=== PATIENT | male | born 1950 | race Caucasian/White ===

== ENCOUNTER 2017-07-23 12:39 | Observation (INO) | payer BC, OTHER ==
--- NOTE | 2017-07-23 13:44 | CPEKG ---
Heart Rate: 64 RR Interval: 938 P-R Interval: 192 QRSD Interval: 84 QT Interval: 424 QTC Interval: 438 P Doyline: 30 QRS Doyline: 36 T Wave Doyline: -20 EKG Severity - ABNORMAL ECG - EKG Impression: SINUS RHYTHM EKG Impression: BORDERLINE T ABNORMALITIES, INFERIOR LEADS Electronically Signed By: Shahrzad Newsome 23-Jul-2017 20:48:52
[2017-07-23 13:59] LABS: % IMMATURE GRANULYOCYTES 0.3 % (0.0-1.1); ABSOLUTE IMMATURE GRANULOCYTES 0.02 10^3/uL (0.00-0.10); ADD DIFF? NO; ADD MORPH? NO; ADD SCAN? NO; ATYPICAL LYMPHOCYTE FLAG 10 (0-99); FRAGMENT RBC FLAG 0 (0-99); HEMOGLOBIN 16.7 g/dL (13.7-17.5); LEFT SHIFT FLG 0 (0-99); LIPEMIA HEMOLYSIS FLAG 90 (0-99); MEAN CELL HEMOGLOBIN 32.1 pg (27.9-34.1); MEAN CELL HEMOGLOBIN CONCENTR. 34.1 g/dL (32.4-36.7); MEAN PLATELET VOLUME 10.8 fL (8.7-11.7); PLATELET CLUMPS FLAG 0 (0-99); PLATELET COUNT 238 10^3/uL (150-400); RED BLOOD CELL COUNT 5.21 10^6/uL (4.40-6.38); RED CELL DISTRIBUTION WIDTH 12.3 % (11.5-15.2)
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
[2017-07-23 14:18] LABS: ANION GAP 13 mEq/L (8-16); CALCIUM 9.9 mg/dL (8.5-10.4); CARBON DIOXIDE 28 mEq/l (22-31); CHLORIDE 101 mEq/L (97-110); CREATININE 1.1 mg/dL (0.7-1.3); GLOMERULAR FILTRATION RATE > 60; GLUCOSE 86 mg/dL (70-100); POTASSIUM 4.4 mEq/L (3.5-5.2); SODIUM 142 mEq/L (134-144)
[2017-07-23] MEDS ORDERED: ONDANSETRON 4 MG/2 ML VIAL IVP PRN (18:56)
[2017-07-23] MEDS ORDERED: ACETAMINOPHEN 325 MG TAB PO PRN (18:56)
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
[2017-07-23] MEDS ORDERED: IOPAMIDOL (ISOVUE 370) 100 ML BTL IV ONE (20:04)
[2017-07-23] MEDS ORDERED: CLOPIDOGREL BISULFATE 75 MG TAB PO SCH (21:00)
[2017-07-23] MEDS: CHOLECALCIFEROL VIT D3 1,000 UNITS TAB PO SCH (22:35)
[2017-07-24 05:26] LABS: CHOLESTEROL 218 mg/dL (140-220); CHOLESTEROL/HDL RATIO 5.19 RATIO (1.00-4.97); HIGH DENSITY LIPOPROTEIN 42 mg/dL (40-65); LDL/HDL RATIO 3.43 RATIO (1.00-3.64); LOW DENSITY LIPOPROTEIN 144 mg/dL (80-100); NON-HIGH DENSITY LIPOPROTEIN 176 mg/dL (90-129); TRIGLYCERIDE 164 mg/dL (40-150); VERY LOW DENSITY LIPOPROTEINS 32 mg/dL (8-25)
[2017-07-24 07:56] VITALS: BP 148/80; PULSE 58; RESP 16; TEMP 97; O2SAT 97
[2017-07-24] MEDS ORDERED: ENOXAPARIN 40 MG/0.4 ML SYR SC SCH (09:00)
--- NOTE | 2017-07-24 09:11 | ASMTCMCOM ---
CM Note CM Note Notes: Chart reviewed. Patient admitted to r/o acute stroke, Therapy pending. Needs to be determined. Date Signed: 07/24/2017 09:11 AM Electronically Signed By:Shawanda Ruano RN
[2017-07-24] MEDS: CHOLECALCIFEROL VIT D3 1,000 UNITS TAB PO SCH (10:26)
--- NOTE | 2017-07-24 10:27 | NEUROPROG ---
Assessment: HOSPITAL NEUROLOGY CONSULT REQUESTING: Lizette Lam MD REASON: possible stroke HPI: 67 year old right-handed man presented to our ED yesterday, 07/23, with 2 days of fluctuating slurred speech and fluctuating dysphagia. Patient and have noted him to have episodic slurred speech when he speaks for an extended period of time. Symptoms resolve when he stops talking for a period of time. Dysphagia seems to manifest similarly with prolonged periods of eating, improving with rest. In the weeks prior, his has noted the patient to have episodic drooping of the eyelids, moreso on the left. has also thought she noted subtle facial drooping. No change in quality of voice. No extremity weakness. No breathing problems. No double vision. He has not been exposed to any new medications, though, notes he recently stopped taking a nettle supplement for nasal drainage. He does take a magnesium supplement for leg cramps. No history of sylvia autoimmunity, though he notes in the past he has had elevated ELMA measures. ROS: As per the HPI, otherwise a complete 12 point ROS was performed and is negative ALLERGIES AND MEDS: As recorded in the EMR - reviewed and reconciled PFSH: As per the intake H&P by Dr. Lam from yesterday EXAM: VS reviewed in EMR GEN: WDWN laying in NAD HEENT: NCAT, sclera anicteric, conjunctiva not injected, MMM, oropharynx clear, no scalp tenderness NECK: supple, nontender, no meningismus CV: RRR s1 s2 wo m/r/c/g. Carotid pulses 2+ wo bruit NEURO: MS: awake, alert, oriented to all spheres. Speech becomes slightly slurred with prolonged periods of talking, then improves with rest. No language disturbance. Follows commands. Attends to both sides. Recent/remote memory grossly intact. Mood euthymic. Good fund of knowledge. CN: pupils 4mm round and reactive. Fundi with sharp discs. VFF. Primary gaze centered. Full ocular motility. No baseline ptosis or fatigable ptosis. Facial sensation preserved. Face symmetric. Hearing grossly intact to finger rub. Palatoglossal movements intact. Shoulder shrug and head turn strong. MOTOR: normal bulk/tone. No adventitial movements. Full power throughout, though, with repetitive movements the deltoids and hip flexors fatigue to 4/5 strength. SENSORY: intact to all modalities throughout. No extinction. COORD: no ataxia FN/HS. Nena preserved. Romberg neg. REFLEX: plantars down. No clonus. DTRS 2/4. GAIT: rises unassisted. Narrow base. Intact stride length/heel strike/toe lift /arm swing. Turns with 2 steps. DATA REVIEW: Labs reviewed in EMR PERSONALLY INTERPRETED RESULTS AND DATA: MRI brain wo - some scattered T2 FLAIR hyperintensities in the subcortical white matter likely reflective of chronic microvascular ischemic changes. CTA head/neck - tiny ulcerated plaque in the proximal SILVANO, otherwise normal vessels IMPRESSION AND RECOMMENDATIONS: // SUSPECT MYASTHENIA GRAVIS Patient with fluctuating dysarthria, dysphagia, episodic ptosis and fatigable extremity weakness. Overall clinical picture seems most fitting with a defect of the post-synaptic neuromuscular junction (ie myasthenia gravis). Will send [facility] myasthenia antibody panel with reflex testing. He can be discharged home after this. I have arranged for him to have EMG/NCS on Thursday at 0800 for neurophysiologic evaluation of the NMJ. He should followup with me in 2 weeks to review testing results and for further recommendations (both diagnostic and interventional). [place] MG panel may take upwards of 10 days to result, so followup appointment should be no sooner than 2 weeks. 60 mins in direct patient care activities on the floor. Questions addressed at length. Objective: Vital Signs Temp Pulse Resp BP Pulse Ox 36.1 C 58 L 16 148/80 H 97 07/24/17 07:50 07/24/17 07:50 07/24/17 07:50 07/24/17 07:50 07/24/17 07:50 07/23/17 07/24/17 07/25/17 05:59 05:59 05:59 Intake Total 50 Output Total 0 Balance 50 Allergies/Adverse Reactions: allopurinol [Allopurinol] Allergy (Severe, Verified 12/25/09 14:59) INFLAMATION, IBS, LEFT ARM PAIN indomethacin [From Indocin] Allergy (Severe, Verified 12/25/09 14:59) CHEST PAIN indomethacin sodium [From Indocin] Allergy (Severe, Verified 12/25/09 15:00) CHEST PAIN rofecoxib [From Vioxx] Allergy (Severe, Verified 12/25/09 15:00) CHEST PAIN
--- NOTE | 2017-07-24 11:46 | HOSPPROG ---
Hospitalist Progress Note Assessment/Plan: Patient is a 67-year-old male who has had 2 days of slurred speech and difficulty swallowing. This slurred speech goes off and on although a gets worse when he talks more frequently and gets fatigued. Today is my 1st encounter with the patient. Chart reviewed. * suspected myasthenia gravis -initial concern was a stroke -MRI of the brain shows some scattered T2 flare hyperintensities in the subcortical white matter likely reflected of chronic microvascular ischemic changes -CTA of the head and neck shows tiny ulcerative plaque in the proximal are ICA -the patient is fluctuating dysarthria, episodic the ptosis and weakness -lab sent to further evaluate -neurology has arranged for him to have an EMG/NCS on Thursday at 0 800 for neuro physiologic evaluation -he should follow up with Neurology in 2 weeks -the laboratory data may take up to 10 days so follow-up appointment should be no sooner than 2 weeks * unintentional weight loss -further follow up with his PCP -TSH is 4.9 -chest x-ray shows nothing acute -has a history of bladder cancer * bladder cancer -status post prostatic seeding -has an appt w his doctor today * hyperlipidemia with an elevated LDL -will f/u with PCP * hypertension -blood pressure has been elevated during his stay should get further follow up with his PCP -has white coat syndrome *Plan: dc home/has close f/u with neurology on Thursday Subjective: Costa has no complaints. Objective: Vital Signs Temp Pulse Resp BP Pulse Ox 36.1 C 58 L 16 148/80 H 97 07/24/17 07:50 07/24/17 07:50 07/24/17 07:50 07/24/17 07:50 07/24/17 07:50 07/23/17 07/24/17 07/25/17 05:59 05:59 05:59 Intake Total 50 Output Total 0 Balance 50 - Physical Exam Constitutional: no apparent distress, other (thin) Eyes: PERRL Ears, Nose, Mouth, Throat: hearing normal Cardiovascular: regular rate and rhythym Respiratory: no respiratory distress Skin: warm Musculoskeletal: full muscle strength Neurologic: AAOx3, CN II-XII Intact, No facial droop Psychiatric: interacting appropriately, not anxious, not encephalopathic ICD10 Worksheet Patient Problems: Problems Problem Status Onset Dysphagia Acute Slurred speech Acute
--- NOTE | 2017-07-24 22:19 | GDS ---
[f rep st] DISCHARGE SUMMARY DISCHARGE DIAGNOSES: 1. Suspected myasthenia gravis. 2. Unintentional weight loss. 3. Bladder cancer. 4. Hyperlipidemia with elevated LDL. 5. Hypertension, white-coat syndrome. CONSULTATION: Dr. Shawn Barnett. BRIEF HISTORY: The patient is a 67-year-old gentleman, who had 2 days of slurred speech and difficul ty swallowing. The slurred speech is off and on, although it does get worse when he talks a lot and gets fatigued. He also has a left-sided facial droop. His swallowing has been consistently difficul t for the last 2 days. In addition, he has also had an 18-20 pound unintentional weight lost. There was concern that he had an acute stroke on admission. A brain MRI was performed after getting a CT of the head that was negative. The MRI showed no evidence of an acute or subacute infarct. Head and neck CTA were performed, showed a tiny ulceration with soft plaque involving the posterior margin of the proximal right internal carotid artery. Otherwise, he has pain antegrade codominant vertebral a rteries. A CTA of the head was negative. He was seen and evaluated by Dr. Barnett, who suspected th at his clinical picture was most likely a postsynaptic neuromuscular junction issues such as myasthen ia gravis. His myasthenia antibody panel with reflex testing will be performed. He also has an EMG/ NCS on [address] Raghavendra Webb. HOSPITAL COURSE PER PROBLEM: 1. Likely myasthenia gravis. His symptoms have been coming and going for quite a while. He should follow up with Neurology in 2 weeks. 2. Unintentional weight loss. He has an appointment with his oncologist today. Chest x-ray shows n othing acute. He does have a history of bladder cancer. TSH is 4.9. 3. Bladder cancer. He is status post prostatic seeding. 4. Hyperlipidemia with elevated LDL. At this time, they would like to hold off treatment until they could get a clear-cut issue if he does have myasthenia gravis or not. 5. Hypertension. He has white-coat syndrome; otherwise, he is normotensive. DISCHARGE CONDITION: Stable. Blood pressure is 148/80, heart rate is 58, respiratory rate is 16, O2 saturation on room air 97%, temperature is 36.1 Celsius. DISCHARGE INSTRUCTIONS: 1. To further follow up with Dr. Webb on Thursday as scheduled and then with Dr. Barnett in appro mately 2 weeks. 2. If he develops any stroke symptoms, to return to the ER. 3. Further follow up with his primary care to evaluate his LDL and also to check his blood pressure. /[id number]/MODL
--- NOTE | 2017-07-25 14:15 | ASDISCHSUM ---
Discharge Information Plan Status: Medically Cleared to Leave: Discharge Date:07/24/2017 02:00 PM CM D/C Disposition: ADT D/C Disposition:Home, Routine, Self-Care Projected Discharge Date:07/24/2017 02:00 PM Transportation at D/C: Discharge Delay Reason: Follow-Up Date:07/24/2017 02:00 PM Discharge Slot: Final Diagnosis: Placement Information Patient Contact Information Contact Name:HARLEEN Relationship: Address:[address] [place] [address] [address] City:[place] Alternate Phone: [facility]/Zip Code:[place] [address] Email: Financial Information Financial Class:HMO and PPO Plans Primary Plan Desc: OUT OF STATE PPO Primary Plan Number:[id number] Secondary Plan Desc: Secondary Plan Number: Assessment Information LACE LACE Length of stay for Answers: Less than 1 day current admission Acuity / Level of Care Answers: Was the patient admitted to hospital via the emergency department? Yes: Comorbidities - select Answers: Cerebrovascular disease all that apply Any tumor (including lymphoma or leukemia) Emergency dept visits in Answers: 1 last 6 months Score: 7 Date Signed: 07/24/2017 09:08 AM Electronically Signed By:Shawanda Ruano RN [facility] CM Progress Note CM Note CM Note Notes: Chart reviewed. Patient admitted to r/o acute stroke, Therapy pending. Needs to be determined. Date Signed: 07/24/2017 09:11 AM Electronically Signed By:Shawanda Ruano RN Intervention Information
== END 2017-07-24 14:00 | disposition home or self-care (01) ==
LOC: F3N 16:42
PROVIDERS: ADMIT Internal Medicine; ATTEND Internal Medicine
DX: G70.00 Myasthenia gravis without (acute) exacerbation (principal); R63.4 Abnormal weight loss; C67.9 Malignant neoplasm of bladder, unspecified; E78.5 Hyperlipidemia, unspecified; I10 Essential (primary) hypertension; Z85.46 Personal history of malignant neoplasm of prostate; G43.909 Migraine, unspecified, not intractable, without status migrainosus; Z96.651 Presence of right artificial knee joint; Z80.0 Family history of malignant neoplasm of digestive organs; Z80.3 Family history of malignant neoplasm of breast
CPT/HCPCS: 70450; 70496; 70498; 70551; 71020; 92610; 93005; 97161; 97165; G0378; J1650; Q9967

== ENCOUNTER → 2017-08-14 | Outpatient (CLI) | payer BC ==
[~2017-08-14] MED LIST: IOPAMIDOL (ISOVUE-300) 100 ML BTL ONE
== END ==
LOC: FIMAGING 14:15
PROVIDERS: ATTEND Psychiatry & Neurology Neurology
DX: R91.8 Other nonspecific abnormal finding of lung field (principal); I25.10 Atherosclerotic heart disease of native coronary artery without angina pectoris; Z85.46 Personal history of malignant neoplasm of prostate
CPT/HCPCS: Q9967

== ENCOUNTER → 2018-01-11 | Outpatient (CLI) | payer OTHER | LOC: FIMAGING 08:37 | PROVIDERS: ATTEND Family Medicine | DX: C61 Malignant neoplasm of prostate (principal); G70.00 Myasthenia gravis without (acute) exacerbation; M85.89 Other specified disorders of bone density and structure, multiple sites; N50.819 Testicular pain, unspecified ==

== ENCOUNTER → 2019-01-26 | Outpatient (CLI) | payer OTHER | LOC: FIMAGING 10:58 | PROVIDERS: ATTEND Family Medicine | DX: Z13.820 Encounter for screening for osteoporosis (principal); M85.89 Other specified disorders of bone density and structure, multiple sites ==